=== PATIENT | male | born 1990 | race Two or more races ===

== ENCOUNTER 2023-02-01 17:19 | Emergency (ER) | payer OTHER | END 2023-02-01 19:32 | disposition home or self-care (01) | LOC: CC.ED 17:19 | DX: S02.40FA Zygomatic fracture, left side, initial encounter for closed fracture (principal); W18.30XA Fall on same level, unspecified, initial encounter; W22.8XXA Striking against or struck by other objects, initial encounter; Y92.89 Other specified places as the place of occurrence of the external cause; Y99.0 Civilian activity done for income or pay | CPT/HCPCS: 70450; 70486; 99283; 99284 ==